=== PATIENT | male | born 1955 | race Caucasian/White ===

== ENCOUNTER 2018-12-09 06:37 | Day surgery (SDC) | payer OTHER, BC ==
[~2018-12-09] VITALS: Ht 170.2 cm; Wt 95.2 kg
[2018-12-09 06:53] VITALS: BP 148/80
[2018-12-09 10:35] VITALS: BP 139/74
== END 2018-12-09 10:20 | disposition home or self-care (01) ==
LOC: DS 06:37 → GI 08:00 → OR 08:30 → GI 08:30 → DS 10:20
PROVIDERS: Internal Medicine Gastroenterology
PROC: 0DBF8ZZ Excision of Right Large Intestine, Via Natural or Artificial Opening Endoscopic (ICD-10-PCS; principal; 2018-12-09 08:00)
PROC: 0DBH8ZZ Excision of Cecum, Via Natural or Artificial Opening Endoscopic (ICD-10-PCS; 2018-12-09 08:00)
DX: D12.0 Benign neoplasm of cecum (principal); D12.2 Benign neoplasm of ascending colon; K63.89 Other specified diseases of intestine; R19.5 Other fecal abnormalities; I10 Essential (primary) hypertension; E78.00 Pure hypercholesterolemia, unspecified; Z86.010 Personal history of colon polyps; Z68.33 Body mass index [BMI] 33.0-33.9, adult; Z80.0 Family history of malignant neoplasm of digestive organs
CPT/HCPCS: 45378; J1200; J1610; J2250; J2310; J3010; J3490